=== PATIENT | male | born 1970 | race Caucasian/White ===

== ENCOUNTER 2020-10-07 06:50 | Emergency (ER) | payer OTHER ==
[~2020-10-07] VITALS: Ht 175.3 cm; Wt 90.7 kg
== END 2020-10-07 10:35 | disposition home or self-care (01) ==
LOC: ER 06:50 → EDBD 07:13 → ER 07:13
DX: S93.491A Sprain of other ligament of right ankle, initial encounter (principal); R60.0 Localized edema; X50.0XXA Overexertion from strenuous movement or load, initial encounter; Y93.01 Activity, walking, marching and hiking; Y92.488 Other paved roadways as the place of occurrence of the external cause; Y99.8 Other external cause status